=== PATIENT | male | born 1970 | race Hispanic/Latino ===

== ENCOUNTER 2017-03-04 07:06 | Inpatient (IN) | payer OTHER ==
[2017-03-04] MEDS ORDERED: Glucagon Recombinant 1 mg Inj ONE (07:18)
[2017-03-04] MEDS ORDERED: Glucagon Recombinant 1 mg Inj IV STA (07:18)
[2017-03-04 07:38] LABS: BASO # 0.1 K/uL (0.0-0.2); BASO % 0.9 % (0.0-2.0); EOS # 0.5 K/uL (0.0-0.7); EOS % 3.5 % (0.0-4.0); HEMATOCRIT 52.3 % (35.0-51.0); LYMPH # 2.8 K/uL (1.0-4.3); LYMPH % 22.2 % (20.0-40.0); MEAN CELL VOLUME 87.6 fL (80.0-94.0); MEAN CORPUSCULAR HEMOGLOBIN 29.4 pg (27.0-31.0); MEAN CORPUSCULAR HGB CONC 33.5 g/dL (33.0-37.0); MEAN PLATELET VOLUME 8.7 fL (7.2-11.7); MONO # 0.7 K/uL (0.0-0.8); MONO % 5.6 % (0.0-10.0); NRBC % 0.1 % (0.0-2.0); RED CELL DISTRIBUTION WIDTH 13.4 % (11.5-14.5); WHITE BLOOD COUNT 12.8 K/uL (4.8-10.8)
[2017-03-04 07:50] LABS: ALB/GLOB RATIO 1.2 (1.0-2.1); BILIRUBIN,TOTAL 0.7 mg/dL (0.2-1.3); CALCIUM 8.5 mg/dl (8.6-10.4); POTASSIUM 3.8 mmol/L (3.6-5.2); TOTAL PROTEIN 6.6 g/dL (6.3-8.3)
--- NOTE | 2017-03-04 08:18 | RAD ---
HISTORY: r/o infiltrate COMPARISON: No prior. FINDINGS: LUNGS: The lungs are clear. PLEURA: No significant pleural effusion identified, no pneumothorax apparent. CARDIOVASCULAR: Normal. OSSEOUS STRUCTURES: No significant abnormalities. VISUALIZED UPPER ABDOMEN: Normal. OTHER FINDINGS: None. IMPRESSION: No active pulmonary disease.
--- NOTE | 2017-03-04 09:13 | RAD ---
PROCEDURE: Radiographs of the neck (soft tissue). . HISTORY: Questionable foreign body COMPARISON: No prior studies available for comparison TECHNIQUE: AP and lateral radiographs of the neck, optimized for soft tissue visualization. FINDINGS: SOFT TISSUES: There does appear to be the appearance of the free margin of the epiglottis and aryepiglottic folds and probably the paralaryngeal soft tissues with narrowing of the airway. . The possibility of an epiglottitis or other inflammatory process -infection/cellulitis must be at considered. Clinical correlation recommended inflammatory process. Followup CT scan recommended No radiopaque foreign bodies are identified. . No definitive radiopaque foreign bodies are identified CERVICAL SPINE: Grossly unremarkable. OTHER FINDINGS: None. IMPRESSION: Prominence of the free margin of the epiglottis and aryepiglottic folds and probably the paralaryngeal soft tissues with narrowing of the airway ; rule out inflammatory process such as epiglottitis -infection/cellulitis must be considered. Followup CT scan recommended. No definitive radiopaque foreign bodies are identified. Note these findings were discussed with Dr. Falcon at approximately 8:35 a.m. with written down and read back verification.
--- NOTE | 2017-03-04 09:26 | CT ---
PROCEDURE: CT scan neck dated 03/04/2017 HISTORY: Foreign body sensation within the throat. COMPARISON: Correlation made with concurrent on plain film radiographs of the neck. . TECHNIQUE: Contiguous helical/ transaxial sections of the neck without intravenous contrast. Coronal and sagittal reformats generated. . The examination is limited due to the lack of circulating intravenous contrast material. Radiation dose: DLP 1598.38 mGy-cm This CT exam was performed using one or more of the following dose reduction techniques: Automated exposure control, adjustment of the mA and/or kV according to patient size, and/or use of iterative reconstruction technique. . FINDINGS: The current study reveals enlargement of the free margin of the epiglottis and aryepiglottic folds likely due nonspecific edema/swelling. . Swelling extends inferiorly of predominately most pronounced posteriorly and laterally with some relative sparing of the anterior paralaryngeal soft tissues with secondary of obliteration/compression of the pyriform sinuses ; on concurrent secretion on may contribute as well on. Soft tissue swelling extends to the level of the false and to a lesser degree true vocal cords. . Rule out in nonspecific inflammation or infection -cellulitis. . These changes result in marked narrowing of the airway at this level. There are no discrete cervical masses or drainable fluid collections seen. . . There is mild irregularity of the vallecula which could be due to some encroachment of lingual tonsil on and probably some secretion. . The airway below the vocal cords are widely patent. . On no obvious foreign bodies are seen within the within the airway or esophagus. Multiple bilateral cervical lymph nodes are present within the jugulodigastric, submandibular/submental and posterior cervical spaces. The largest right-sided jugulodigastric lymph node measures approximately 2.1 cm though there does appear to be a fatty center. Largest left-sided jugulodigastric lymph node measures approximately 1.3 cm. Evaluation of the cervical vasculature is limited due to the lack of circulating intravenous contrast material however calcified atherosclerotic plaque seen both carotid bifurcations. The parotid and submandibular glands unremarkable. Thyroid gland is poorly seen though does exhibit heterogeneous enhancement which is in part due to crossing streak and beam hardening artifact arising from dense clavicles and shoulder girdles. . Minor multilevel degenerative spondylosis of the cervical spine most notably affecting the C6-C7 and C5-C6 levels. Lung apices are clear. IMPRESSION: There is mild enlargement/swelling of the free margin of the epiglottis, aryepiglottic folds and and moderate enlargement/swelling of the inferior paralaryngeal soft tissues. Findings could represent an epiglottitis with pamella/ infection -cellulitis. Note that these findings were discussed with Dr. Mejia at approximately 8:35 a.m. with written down and read back verification. Precautionary tracheostomy kit to bedside and endoscopy suggested. See above discussion for additional details and findings.
[2017-03-04] MEDS ORDERED: Piperacillin/Tazobact 3.375 GM in Sodium Chloride 100 ML IVPB SCH (09:30)
[2017-03-04] MEDS ORDERED: Clindamycin 600mg/50ml NS 600 MG/50 ML BAG IVPB ONE (09:42)
--- NOTE | 2017-03-04 10:02 | CON ---
DATE: 03/04/2017 REASON FOR CONSULTATION: Epiglottitis, possible. REQUESTING PHYSICIAN: The emergency room. HISTORY OF PRESENT ILLNESS: This is a 46-year-old with 1-day history of dysphagia, constant, moderate. The patient presents to the ER with these symptoms. He has no shortness of breath and no hoarseness. When the patient laid supine, cane breathe; however, for only for a minute and then feels like his throat is closing up. PAST MEDICAL HISTORY: As noted in the chart by me. MEDICATIONS: As noted in the chart by me. PHYSICAL EXAMINATION: HEAD: Atraumatic, normocephalic. FACE: Good facial movements bilaterally. CONSTITUTIONAL: Well fed, well nourished. COMMUNICATION: Communicates well appropriately. EXTERNAL NOSE AND EARS: No masses. No lesions. No erythema. No edema. INTERNAL NOSE: There is possible erythema, edema of the mucosa with yellow discharge noted. ORAL CAVITY AND OROPHARYNX: Erythema of the pharyngeal sanchez. LIPS AND GUMS: No masses. No lesions. No erythema. No edema. NECK: Supple. THYROID: No thyromegaly. No goiter. LYMPH NODES: No lymphadenopathy of the neck. A flexible laryngoscopy was attempted; however, the patient was not tolerating it well. I decided that it will be wiser to stop as the patient has epiglottitis, this could make the situation worse, therefore the attempt of flexible laryngoscopy was aborted. ASSESSMENT: 1. Dysphagia. 2. Deviated septum. 3. Possible epiglottitis. The CAT scan revealed enlarged epiglottis; however, the patient is not symptomatically short of breath. PLAN: My recommendations for the patient to be admitted to the hospital, placed on IV steroids and IV antibiotics and observe for now. If the patient shows any signs of shortness of breath or difficulty, he should be admitted to the ICU. Sebastian Garcia MD
--- NOTE | 2017-03-04 11:24 | C.PDOC ---
History Of Present Illness 46 y/o male presents to ED complaining of fullness in the back of his throat that woke him up at 3:00AM this morning. Pt describes it as a "ball of phlegm" in the back of the throat, with associated cough. Notes eating last night at 6: 00PM without difficulty. Denies sick contact, fever, chest pain, or shortness of breath. Chief Complaint (Nursing): Respiratory Distress History Per: Patient History/Exam Limitations: no limitations Onset/Duration Of Symptoms: Hrs Current Symptoms Are (Timing): Still Present Past Medical History Reviewed: Historical Data, Nursing Documentation, Vital Signs Vital Signs: Last Vital Signs Temp 97.8 F 03/04/17 16:00 Pulse 91 H 03/04/17 16:07 Resp 14 03/04/17 16:07 BP 157/107 H 03/04/17 16:07 Pulse Ox 94 L 03/04/17 16:07 - Medical History PMH: HTN Family History: States: Unknown Family Hx - Social History Hx Alcohol Use: No Hx Substance Use: No - Immunization History Hx Influenza Vaccination: No Review Of Systems Except As Marked, All Systems Reviewed And Found Negative. Constitutional: Negative for: Fever, Chills ENT: Positive for: Other (fullness in back of throat) Cardiovascular: Negative for: Chest Pain, Palpitations Respiratory: Positive for: Cough. Negative for: Shortness of Breath Physical Exam - Physical Exam Appears: Non-toxic, Other (mild to moderate distress) Skin: Normal Color, Warm, Dry Head: Atraumatic, Normacephalic Eye(s): bilateral: Normal Inspection Nose: Normal Oral Mucosa: Moist Throat: Erythema, No Other (no tongue blade used) Neck: Normal ROM, Supple Chest: Symmetrical Cardiovascular: Rhythm Regular, No Murmur Respiratory: No Rales, No Rhonchi, Stridor (minimal), No Wheezing, Other ( coughing phlegm) Gastrointestinal/Abdominal: Soft, No Tenderness Extremity: Normal ROM, No Pedal Edema Neurological/Psych: Oriented x3, Normal Speech ED Course And Treatment - Laboratory Results Result Diagrams: 03/04/17 07:34 03/04/17 07:34 O2 Sat by Pulse Oximetry: 95 Pulse Ox Interpretation: Normal Progress Note: Blood work, UA, influenza AB, CXR, neck soft tissue x-ray/CT ordered and reviewed. Initially 1mg of Glucagon IV was given for possible foreign body without improvement. 10mg of Decadron IVP was given prior to CT scan results. ENT, and ICU were called immediately after receiving call from radiologist regarding CT scan results. ENT, Dr. Garcia, came to ED, and performed direct visualization. Spoke to infectious disease rigging and controls aircraft mechanic, Dr. Nova , who recommended Zosyn and Clindamycin. Hospitalist was made aware of case. Pt was admitted to ICU. Pt remains stable in the ED, no respiratory distress. Critical Care Time - Critical Care Note Total Time (in mins): 90 Documented critical care: time excludes all time spent performing seperately billable procedures. Disposition - Disposition Disposition: HOSPITALIZED Disposition Time: 19:30 Condition: SERIOUS - Clinical Impression Clinical Impression: Acute epiglottitis - Scribe Statement The provider has reviewed the documentation as recorded by the Darielibyousif Lazo All medical record entries made by the Darielibyousif were at my direction and personally dictated by me. I have reviewed the chart and agree that the record accurately reflects my personal performance of the history, physical exam, medical decision making, and the department course for this patient. I have also personally directed, reviewed, and agree with the discharge instructions and disposition.
[2017-03-04] MEDS ORDERED: Labetalol 25mg/5ml Syringe IV PRN (12:20)
--- NOTE | 2017-03-04 12:29 | CP.PCM.CON ---
History of Present Illness - History of Present Illness History of Present Illness: Patient is a 46 year old male with history of HTN who reported to the ER this morning after he that he woke up at 3AM with sensation of fullness in his throat. States he had difficulty swallowing and lying flat without feeling fullness in his throat. Admits to experiencing a sore throat yesterday. States he has not been drooling. Denies prior history of similar episodes. Denies chest pain, shortness of breath, abdominal pain. CT soft tissue of neck revealed enlargement/swelling of epiglottis that could represent epiglottitis. He has never been intubated before, he would like to try antibiotics initially. In the ED, he received Decadron 10mg IM, and was initiated on Clindamycin 600mg IV, Zosyn 3.375g IV. Review of Systems - Review of Systems All systems: reviewed and no additional remarkable complaints except - Constitutional Constitutional: As Per HPI - EENT Eyes: As Per HPI Ears: As Per HPI Nose/Mouth/Throat: As Per HPI - Cardiovascular Cardiovascular: As Per HPI - Respiratory Respiratory: As Per HPI - Gastrointestinal Gastrointestinal: As Per HPI - Genitourinary Genitourinary: As Per HPI - Reproductive: Male Reproductive:Male: As Per HPI - Musculoskeletal Musculoskeletal: As Per HPI - Integumentary Integumentary: As Per HPI Past Patient History - Infectious Disease Hx of Infectious Diseases: None - Past Medical History & Family History Past Medical History?: Yes - Past Social History Smoking Status: Never Smoked - CARDIAC Hx Hypertension: Yes - PULMONARY Hx Respiratory Disorders: No - NEUROLOGICAL Hx Neurological Disorder: No - HEENT Hx HEENT Problems: No - RENAL Hx Chronic Kidney Disease: No - ENDOCRINE/METABOLIC Hx Endocrine Disorders: No - HEMATOLOGICAL/ONCOLOGICAL Hx Blood Disorders: No - INTEGUMENTARY Hx Dermatological Problems: No - MUSCULOSKELETAL/RHEUMATOLOGICAL Hx Fractures: Yes (hip fx 11 years ago) - GASTROINTESTINAL Hx Gastrointestinal Disorders: No - GENITOURINARY/GYNECOLOGICAL Hx Genitourinary Disorders: No - PSYCHIATRIC Hx Substance Use: No - SURGICAL HISTORY Hx Surgeries: Yes Hx Open Reduction Internal Fixation: Yes (right hip fx) - ANESTHESIA Hx Anesthesia: Yes Hx Anesthesia Reactions: No Hx Malignant Hyperthermia: No Has any member of the family had a problem w/ anesthesia?: No Meds Allergies/Adverse Reactions: Allergies Allergy/AdvReac Type Severity Reaction Status Date / Time No Known Allergies Allergy Verified 03/04/17 07:11 - Medications Medications: Current Medications Dexamethasone (Decadron Inj) 4 mg IVP Q8H [facility] Enoxaparin Sodium (Lovenox) 40 mg SC DAILY [facility] Famotidine (Pepcid) 20 mg IVP Q12 [facility]ICK[facility] Sodium Chloride (Sodium Chloride 0.9%) 1,000 mls @ 42 mls/hr IV .[id number] [facility] Ceftriaxone Sodium 1 gm/ (Sodium Chloride) 100 mls @ 100 mls/hr IVPB Q12H [facility] Labetalol HCl (Trandate) 5 mg IV Q6 PRN PRN Reason: Systolic Blood Pressure Saccharomyces Boulardii (Florastor) 250 mg PO BID [facility] Physical Exam - Head Exam Head Exam: ATRAUMATIC, NORMAL INSPECTION - Eye Exam Eye Exam: EOMI, Normal appearance Pupil Exam: NORMAL ACCOMODATION - ENT Exam ENT Exam: Mucous Membranes Moist - Neck Exam Neck exam: Positive for: Normal Inspection. Negative for: Lymphadenopathy - Respiratory Exam Respiratory Exam: Clear to Auscultation Bilateral, NORMAL BREATHING PATTERN. absent: Accessory Muscle Use, Chest Wall Tenderness, Stridor - Cardiovascular Exam Cardiovascular Exam: REGULAR RHYTHM, RRR, +S1, +S2 - GI/Abdominal Exam GI & Abdominal Exam: Normal Bowel Sounds, Soft Results - Vital Signs Recent Vital Signs: Last Vital Signs Temp 97.7 F 03/04/17 10:20 Pulse 102 H 03/04/17 10:20 Resp 11 L 03/04/17 10:20 BP 162/120 H 03/04/17 10:20 Pulse Ox 95 03/04/17 12:24 - Labs Result Diagrams: 03/04/17 07:34 03/04/17 07:34 Labs: Laboratory Results - last 24 hr 03/04/17 03/04/17 03/04/17 07:34 07:34 07:34 WBC 12.8 H RBC 5.97 H Hgb 17.5 Hct 52.3 H MCV 87.6 MCH 29.4 MCHC 33.5 RDW 13.4 Plt Count 349 MPV 8.7 Neut % (Auto) 67.8 Lymph % (Auto) 22.2 [place] % (Auto) 5.6 Eos % (Auto) 3.5 Baso % (Auto) 0.9 Neut # 8.7 H Lymph # 2.8 [place] # 0.7 Eos # 0.5 Baso # 0.1 PT 10.7 INR 1.0 APTT 32 Sodium 139 Potassium 3.8 Chloride 107 Carbon Dioxide 23 Anion Gap 13 BUN 36 H Creatinine 4.3 H Est GFR ( Amer) 18 Est GFR (Non-Af Amer) 15 Random Glucose 109 Calcium 8.5 L Total Bilirubin 0.7 AST 21 ALT 27 Alkaline Phosphatase 85 Total Protein 6.6 Albumin 3.6 Globulin 3.0 Albumin/Globulin Ratio 1.2 Influenza Typ A,B (EIA) Blood Type Antibody Screen 03/04/17 03/04/17 07:38 10:45 WBC RBC Hgb Hct MCV MCH MCHC RDW Plt Count MPV Neut % (Auto) Lymph % (Auto) [place] % (Auto) Eos % (Auto) Baso % (Auto) Neut # Lymph # [place] # Eos # Baso # PT INR APTT Sodium Potassium Chloride Carbon Dioxide Anion Gap BUN Creatinine Est GFR ( Amer) Est GFR (Non-Af Amer) Random Glucose Calcium Total Bilirubin AST ALT Alkaline Phosphatase Total Protein Albumin Globulin Albumin/Globulin Ratio Influenza Typ A,B (EIA) Negative for flu a/b Blood Type AB POSITIVE Antibody Screen Negative Assessment & Plan - Assessment and Plan (Free Text) Assessment: 46 year old male with history of HTN who presented for dysphagia, with possible epiglottitis. ENT: Continue IV antibiotics with Ceftriaxone 1g IV Decadron 4mg IV Q8 NS IV fluids 1L ENT Dr. Garcia consulted, help appreciated Monitor regularly to check for stridor, hoarse voice which would need further management Keep NPO Sputum cultures for strep and influenza pending. Procalcitonin levels, lactate levels pending. Cardiovascular: Blood pressure elevated at 162/120 Labetalol 5mg IV Prophylaxis: GI: Pepcid 20mg I DVTs: SCDs, lovenox 40mg SC
[2017-03-04] MEDS ORDERED: Sodium Chloride 0.9% 1,000 ML IV SCH ×2 (12:30→17:24)
[2017-03-04] MEDS: Dexamethasone 4 mg/1 ml IVP SCH ×2 (13:22→21:52)
--- NOTE | 2017-03-04 13:39 | CP.PCM.HP ---
History of Present Illness - History of Present Illness History of Present Illness: Hospitalist Admission Note Patient was seen and examined in the ICU Bed 17 at 1:00 PM 03/04/17. PMD Dr. Mukherjee in [place] CODE STATUS: FULL CODE. NO advance directive. Designates Auto Motor Mechanic Shannan Perez as his health care proxy. Would like his Sister Jeanette [phone] notified for any emergencies. 46 year old male who presented via EMS with a chief complaint of choking sensation. Patient states that he went to sleep at midnight last night. He then woke up abruptly at 3 AM coughing and wheezing and a choking sensation in the back of his throat. He tried to drink some water but this made these things worse. He became concerned as this has never happened before and therefore called 911 and was brought to the ER here at [facility]. He has not recently traveled anywhere. 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 ROS: NO chest pain, NO palpitations, (+) Cough: this has significantly improved since his treatment (Decadron, IV Clindamycin and Zosyn) in the ER, NO wheezing , (+) Soreness in throat is present but no longer feels as if he is choking, (+ ) Hoarseness of Voice (when he came into the ER he states that he could not even speak), NO abdominal pain, NO n/v/d/c, NO black/bloody stools, NO lightheadedness/dizziness, NO burning/pain with urination, NO paresthesias, NO current rashes but (+)Hx of Hives for the past 2 years for which he is being treated with Hydroxyzine 10 mg PO 1x/day for which he ran out 1 week ago (and has been using OTC Zyrtec, also note that he has never been tested for allergies ) PMHx: HTN, Hives (bilateral forearms, chest and the bilateral temporal areas) PSHx: Right Hip Fracture (15 years ago) with (+) Metal Hardware Present ALL: NKDA or Food Allergies Medication: Exforge "10" mg, Hyroxyzine 10 mg PO 1x/day Social Hx: Lives Alone, Owns a Pizzeria, (+) Tobacco: 1 pack/2 weeks for 2 years having quit 5 years ago, NO alcohol, NO illicit drugs Family Hx: Mom ( at 85 of CHF), Dad ( at 60 of [place]), Brother (Healthy), Sisters x 2 (Healthy) Present on Admission - Present on Admission Any Indicators Present on Admission: Yes History of DVT/PE: No History of Uncontrolled Diabetes: No Urinary Catheter: No Decubitus Ulcer Present: No Review of Systems - Review of Systems Review of Systems: Please see above Past Patient History - Infectious Disease Hx of Infectious Diseases: None - Past Medical History & Family History Past Medical History?: Yes Pertinent Family History: Please see above - Past Social History Smoking Status: Never Smoked - CARDIAC Hx Hypertension: Yes - PULMONARY Hx Respiratory Disorders: No - NEUROLOGICAL Hx Neurological Disorder: No - HEENT Hx HEENT Problems: No - RENAL Hx Chronic Kidney Disease: No - ENDOCRINE/METABOLIC Hx Endocrine Disorders: No - HEMATOLOGICAL/ONCOLOGICAL Hx Blood Disorders: No - INTEGUMENTARY Hx Dermatological Problems: No - MUSCULOSKELETAL/RHEUMATOLOGICAL Hx Fractures: Yes (hip fx 11 years ago) - GASTROINTESTINAL Hx Gastrointestinal Disorders: No - GENITOURINARY/GYNECOLOGICAL Hx Genitourinary Disorders: No - PSYCHIATRIC Hx Substance Use: No - SURGICAL HISTORY Hx Surgeries: Yes Hx Open Reduction Internal Fixation: Yes (right hip fx) - ANESTHESIA Hx Anesthesia: Yes Hx Anesthesia Reactions: No Hx Malignant Hyperthermia: No Has any member of the family had a problem w/ anesthesia?: No Meds Allergies/Adverse Reactions: Allergies Allergy/AdvReac Type Severity Reaction Status Date / Time No Known Allergies Allergy Verified 03/04/17 07:11 Physical Exam - Constitutional Appears: Well, Non-toxic, No Acute Distress - Head Exam Head Exam: ATRAUMATIC, NORMAL INSPECTION - Eye Exam Eye Exam: EOMI, Normal appearance, PERRL Pupil Exam: NORMAL ACCOMODATION, PERRL - ENT Exam ENT Exam: Mucous Membranes Dry, Normal Exam, Normal External Ear Exam, Normal Oropharynx - Neck Exam Neck exam: Positive for: Normal Inspection Additional comments: Thick neck but lymphadenopathy palpated - Respiratory Exam Respiratory Exam: Clear to Auscultation Bilateral Additional comments: CTA B/L, NO R/R/W - Cardiovascular Exam Cardiovascular Exam: REGULAR RHYTHM, +S1, +S2 Additional comments: NS1 and NS2, NO M/R/G - GI/Abdominal Exam GI & Abdominal Exam: Normal Bowel Sounds, Soft Additional comments: BSx4, Soft, NT, Central Obesity, Liver and Spleen could not be adequately palpated secondary to body habitus, NO guarding/rebound tenderness - Extremities Exam Extremities exam: Positive for: normal capillary refill, normal inspection Additional comments: Pulses are strong and qual, Capillary Refill is 2 seconds, NO edema - Neurological Exam Neurological exam: Alert, CN II-XII Intact, Oriented x3 - Psychiatric Exam Psychiatric exam: Normal Affect, Normal Mood - Skin Skin Exam: Dry, Intact, Normal Color Results - Vital Signs Recent Vital Signs: Last Vital Signs Temp 97.7 F 03/04/17 10:20 Pulse 102 H 03/04/17 10:20 Resp 11 L 03/04/17 10:20 BP 162/120 H 03/04/17 10:20 Pulse Ox 95 03/04/17 13:24 - Labs Result Diagrams: 03/04/17 07:34 03/04/17 07:34 Labs: Laboratory Results - last 24 hr 03/04/17 03/04/17 03/04/17 07:34 07:34 07:34 WBC 12.8 H RBC 5.97 H Hgb 17.5 Hct 52.3 H MCV 87.6 MCH 29.4 MCHC 33.5 RDW 13.4 Plt Count 349 MPV 8.7 Neut % (Auto) 67.8 Lymph % (Auto) 22.2 [place] % (Auto) 5.6 Eos % (Auto) 3.5 Baso % (Auto) 0.9 Neut # 8.7 H Lymph # 2.8 [place] # 0.7 Eos # 0.5 Baso # 0.1 PT 10.7 INR 1.0 APTT 32 Sodium 139 Potassium 3.8 Chloride 107 Carbon Dioxide 23 Anion Gap 13 BUN 36 H Creatinine 4.3 H Est GFR ( Amer) 18 Est GFR (Non-Af Amer) 15 Random Glucose 109 Calcium 8.5 L Total Bilirubin 0.7 AST 21 ALT 27 Alkaline Phosphatase 85 Total Protein 6.6 Albumin 3.6 Globulin 3.0 Albumin/Globulin Ratio 1.2 Influenza Typ A,B (EIA) Blood Type Antibody Screen 03/04/17 03/04/17 07:38 10:45 WBC RBC Hgb Hct MCV MCH MCHC RDW Plt Count MPV Neut % (Auto) Lymph % (Auto) [place] % (Auto) Eos % (Auto) Baso % (Auto) Neut # Lymph # [place] # Eos # Baso # PT INR APTT Sodium Potassium Chloride Carbon Dioxide Anion Gap BUN Creatinine Est GFR ( Amer) Est GFR (Non-Af Amer) Random Glucose Calcium Total Bilirubin AST ALT Alkaline Phosphatase Total Protein Albumin Globulin Albumin/Globulin Ratio Influenza Typ A,B (EIA) Negative for flu a/b Blood Type AB POSITIVE Antibody Screen Negative Assessment & Plan (1) Acute epiglottitis Assessment and Plan: CT Soft Tiss Neck w/o contrast: there is mild enlargement/swelling of the free margin of the epiglottis, aryepiglottic folds and moderate enlargement/swelling of the inferior paralaryngeal soft tissues, findings could represent an epiglottitis. Clindaymcin and Zosyn and Decadron given in the ER Bedside Laryngoscope attempted by ENT Dr. Thrasher due to resistance this was discontinued. Patient is clinically doing well Decadron 4 mg IV Q8H Recephin 1 gm IV Q24H Vancomycin 1 gm IV Q24H (renal dosing) F/U [place] 1:30 AM 03/06/17 Influenza is negative F/U ASO Titers F/U Rapid Strep F/U HSV 1 F/U [place] Virus/Monospot F/U Parainfluenza 1,2,3 DFA (Manual Requistion completed and placed in chart) F/U further recommendations from ID Dr. Raeann Nova Status: Acute (2) HTN (hypertension) Assessment and Plan: He takes Exforge at home. HOLD for NOW considering the Renal Failure Status: Chronic (3) Acute renal failure Assessment and Plan: Secondary to home medications of Exforge? Is this Chronic? Patient revealed that he last saw his PMD roughly 1 month ago and was told that his kidney function was abnormal and was instructed to follow up with a Neprhologist and he has appointment scheduled for next weekl Is this Chronic? (he gives no history of this when questioning his medical history) F/U Bilateral Renal U/S IVF If there is NO improvement with the IVF then will get Nephrology on board Status: Acute (4) Prophylactic measure Assessment and Plan: Pepcid 20 mg IV 1x/day Heparin 5,000 Units SC Q8H and Bilateral SCDs Heart Healthy Diet Florastor 250 mg PO 2x/day Status: Acute
[2017-03-04] MEDS ORDERED: Vancomycin 1 gm/NS 200 ml 1 GM/200 ML BAG IVPB SCH ×2 (14:00→16:00)
--- NOTE | 2017-03-04 17:05 | CP.PCM.CON ---
History of Present Illness - History of Present Illness History of Present Illness: 46 year old male who presented via EMS with a chief complaint of choking sensation. He woke up at 3 AM coughing and wheezing and a choking sensation in the back of his throat. He states that he had no recent travel or exposure to chemicals or toxins Says a co-worker recently had a sore throat PMHx: HTN, Hives PSHx: Right Hip Fracture (15 years ago) with (+) Metal Hardware Present ALL: NKDA Medication: Exforge "10" mg, Hyroxyzine 10 mg PO 1x/day Social Hx: Lives Alone, Owns a [employer], (+) Tobacco: quit 5 years ago, NO alcohol, NO illicit drugs Family Hx: Mom ( at 85 of CHF), Dad ( at 60 of [place]), Brother (Healthy), Sisters x 2 (Healthy) Review of Systems - Review of Systems All systems: reviewed and no additional remarkable complaints except - Constitutional Constitutional: As Per HPI - EENT Eyes: absent: As Per HPI, Blind Spots, Blurred Vision, Change in Vision, Decreased Night Vision, Diplopia, Discharge, Dry Eye, Exophthalmos, Floaters, Irritation, Itchy Eyes, Loss of Peripheral Vision, Pain, Photophobia, Requires Corrective Lenses, Sees Flashes, Spots in Vision, Tunnel Vision, Other Visual Disturbances, Loss of Vision, Other Ears: absent: As Per HPI, Decreased Hearing, Ear Discharge, Ear Pain, Tinnitus, Abnormal Hearing, Disequilibrium, Dizziness, Other Nose/Mouth/Throat: As Per HPI - Cardiovascular Cardiovascular: absent: As Per HPI, Acrocyanosis, Chest Pain, Chest Pain at Rest , Chest Pain with Activity, Claudication, Diaphoresis, Dyspnea, Dyspnea on Exertion, Edema, Irregular Heart Rhythm, Pain Radiating to Arm/Neck/Jaw, Leg Edema, Leg Ulcers, Lightheadedness, Orthopnea, Palpitations, Paroxysmal Nocturnal Dyspnea, Pedal Edema, Radiating Pain, Rapid Heart Rate, Slow Heart Rate, Syncope, Other - Respiratory Respiratory: absent: As Per HPI, Cough, Dyspnea, Hemoptysis, Dyspnea on Exertion , Wheezing, Snoring, Stridor, Pain on Inspiration, Chest Congestion, Excessive Mucous Production, Change in Mucous Color, Pain with Coughing, Other - Gastrointestinal Gastrointestinal: absent: As Per HPI, Abdominal Pain, Belching, Bloating, Change in Bowel Habits, Change in Stool Character, Coffee Ground Emesis, Constipation, Cramping, Diarrhea, Dyspepsia, Dysphagia, Early Satiety, Excessive Flatus, Fecal Incontinence, Heartburn, Hematemesis, Hematochezia, Loose Stools, Melena, Nausea, Odynophagia, Temesmus, Vomiting, Other - Genitourinary Genitourinary: absent: As Per HPI, Change in Urinary Stream, Difficulty Urinating, Dysuria, Flank Pain, Hematuria, Pyuria, Nocturia, Urinary Incontinence, Urinary Frequency, Urinary Hesitance, Urinary Urgency, Voiding Freq/Small Amts, Freq UTI, Hx Renal/Bladder Calculi, Hx /Renal Surgery, Bladder Distension, Other - Musculoskeletal Musculoskeletal: absent: As Per HPI, Abnormal Gait, Arthralgias, Atrophy, Back Pain, Deformity, Joint Swelling, Limited Range of Motion, Loss of Height, Muscle Cramps, Muscle Weakness, Myalgias, Neck Pain, Numbness, Radiating Pain into Limb, Stiffness, Tingling, Other - Integumentary Integumentary: absent: As Per HPI, Acne, Alopecia, Bleeding Lesions, Change in Hair, Change in Nails, Change in Pigmentation, Changing Lesions, Dry Skin, Erythema, Furuncle, Hirsutism, Lesions, New Lesions, Non-Healing Lesions, Photosensitivity, Pruritus, Rash, Skin Pain, Skin Ulcer, Sores, Striae, Swelling , Unusual Bruising, Wounds, Jaundice, Other - Neurological Neurological: absent: As Per HPI, Abnormal Gait, Abnormal Hearing, Abnormal Movements, Abnormal Speech, Behavioral Changes, Burning Sensations, Confusion, Convulsions, Disequilibrium, Dizziness, Numbness, Focal Weakness, Frequent Falls , Headaches, Lack of Coordination, Loss of Vision, Memory Loss, Paresthesias, Radicular Pain, Restless Legs, Sensory Deficit, Syncope, Tingling, Tremor, Vertigo, Weakness, Other Visual Disturbances, Other - Psychiatric Psychiatric: absent: As Per HPI, Abnormal Sleep Pattern, Anhedonia, Anxiety, Auditory Hallucinations, Behavioral Changes, Change in Appetite, Change in Libido, Confusion, Depression, Difficulty Concentrating, Hallucinations, Homicidal Ideation, Hopelessness, Irritability, Memory Loss, Mood Swings, Panic Attacks, Paranoia, Suicidal Ideation, Visual Hallucinations, Tactile Hallucinations, Other - Endocrine Endocrine: absent: As Per HPI, Change in Body Appearance, Change in Libido, Cold Intolorance, Deepening of Voice, Excessive Sweating, Fatigue, Flushing, Heat Intolorance, Increase in Ring/Shoe/Hat Size, Palpitations, Polydipsia, Polyphagia, Polyuria, Other - Hematologic/Lymphatic Hematologic: absent: As Per HPI, Easy Bleeding, Easy Bruising, Lymphadenopathy, Other Past Patient History - Infectious Disease Hx of Infectious Diseases: None - Past Medical History & Family History Past Medical History?: Yes - Past Social History Smoking Status: Never Smoked - CARDIAC Hx Hypertension: Yes - PULMONARY Hx Respiratory Disorders: No - NEUROLOGICAL Hx Neurological Disorder: No - HEENT Hx HEENT Problems: No - RENAL Hx Chronic Kidney Disease: No - ENDOCRINE/METABOLIC Hx Endocrine Disorders: No - HEMATOLOGICAL/ONCOLOGICAL Hx Blood Disorders: No - INTEGUMENTARY Hx Dermatological Problems: No - MUSCULOSKELETAL/RHEUMATOLOGICAL Hx Fractures: Yes (hip fx 11 years ago) - GASTROINTESTINAL Hx Gastrointestinal Disorders: No - GENITOURINARY/GYNECOLOGICAL Hx Genitourinary Disorders: No - PSYCHIATRIC Hx Substance Use: No - SURGICAL HISTORY Hx Surgeries: Yes Hx Open Reduction Internal Fixation: Yes (right hip fx) - ANESTHESIA Hx Anesthesia: Yes Hx Anesthesia Reactions: No Hx Malignant Hyperthermia: No Has any member of the family had a problem w/ anesthesia?: No Meds Allergies/Adverse Reactions: Allergies Allergy/AdvReac Type Severity Reaction Status Date / Time No Known Allergies Allergy Verified 03/04/17 07:11 - Medications Medications: Current Medications Dexamethasone (Decadron Inj) 4 mg IVP Q8H [facility] Last Admin: 03/04/17 13:22 Dose: 4 mg Famotidine (Pepcid) 20 mg IVP DAILY [facility] Heparin Sodium (Porcine) (Heparin) 5,000 units SC Q8 [facility] Last Admin: 03/04/17 14:28 Dose: 5,000 units Sodium Chloride (Sodium Chloride 0.9%) 1,000 mls @ 42 mls/hr IV .[id number] [facility] Last Admin: 03/04/17 13:06 Dose: 42 mls/hr Ceftriaxone Sodium 1 gm/ (Sodium Chloride) 100 mls @ 100 mls/hr IVPB Q12H [facility] Last Admin: 03/04/17 14:20 Dose: 100 mls/hr Vancomycin/Sodium Chloride (Vancomycin 1 Gm/Ns 200 Ml) 1 gm in 200 mls @ 133.333 mls/hr IVPB Q24H [facility] Stop: 03/09/17 16:01 Last Admin: 03/04/17 16:32 Dose: 133.333 mls/hr Labetalol HCl (Trandate) 5 mg IV Q6 PRN PRN Reason: Systolic Blood Pressure Last Admin: 03/04/17 13:06 Dose: 5 mg Metoprolol Tartrate (Lopressor) 25 mg PO BID [facility] Saccharomyces Boulardii (Florastor) 250 mg PO BID [facility] Physical Exam - Constitutional Appears: Non-toxic, Chronically Ill - Head Exam Head Exam: NORMOCEPHALIC - Eye Exam Eye Exam: PERRL. absent: Scleral icterus - ENT Exam ENT Exam: Mucous Membranes Dry, Normal External Ear Exam, TM's Normal Bilaterally Additional comments: erythema+ unable to visualize epiglottis - Neck Exam Neck exam: Negative for: Lymphadenopathy, Thyromegaly - Respiratory Exam Respiratory Exam: Decreased Breath Sounds, Clear to Auscultation Bilateral - Cardiovascular Exam Cardiovascular Exam: REGULAR RHYTHM, +S1, +S2 - GI/Abdominal Exam GI & Abdominal Exam: Diminished Bowel Sounds, Soft. absent: Tenderness - Rectal Exam Rectal Exam: Deferred - Exam Exam: NORMAL INSPECTION - Extremities Exam Extremities exam: Negative for: pedal edema - Back Exam Back exam: absent: CVA tenderness (L), CVA tenderness (R), paraspinal tenderness - Neurological Exam Neurological exam: Alert, CN II-XII Intact, Oriented x3, Reflexes Normal - Psychiatric Exam Psychiatric exam: Normal Mood - Skin Skin Exam: Dry, Intact Results - Vital Signs Recent Vital Signs: Last Vital Signs Temp 97.8 F 03/04/17 16:00 Pulse 91 H 03/04/17 16:07 Resp 14 03/04/17 16:07 BP 157/107 H 03/04/17 16:07 Pulse Ox 94 L 03/04/17 16:07 - Labs Result Diagrams: 03/04/17 07:34 03/04/17 07:34 Labs: Laboratory Results - last 24 hr 03/04/17 03/04/17 03/04/17 07:34 07:34 07:34 WBC 12.8 H RBC 5.97 H Hgb 17.5 Hct 52.3 H MCV 87.6 MCH 29.4 MCHC 33.5 RDW 13.4 Plt Count 349 MPV 8.7 Neut % (Auto) 67.8 Lymph % (Auto) 22.2 [place] % (Auto) 5.6 Eos % (Auto) 3.5 Baso % (Auto) 0.9 Neut # 8.7 H Lymph # 2.8 [place] # 0.7 Eos # 0.5 Baso # 0.1 PT 10.7 INR 1.0 APTT 32 Sodium 139 Potassium 3.8 Chloride 107 Carbon Dioxide 23 Anion Gap 13 BUN 36 H Creatinine 4.3 H Est GFR ( Amer) 18 Est GFR (Non-Af Amer) 15 Random Glucose 109 Lactic Acid Calcium 8.5 L Total Bilirubin 0.7 AST 21 ALT 27 Alkaline Phosphatase 85 Total Protein 6.6 Albumin 3.6 Globulin 3.0 Albumin/Globulin Ratio 1.2 Procalcitonin Influenza Typ A,B (EIA) Blood Type Antibody Screen 03/04/17 03/04/17 03/04/17 07:38 10:45 15:03 WBC RBC Hgb Hct MCV MCH MCHC RDW Plt Count MPV Neut % (Auto) Lymph % (Auto) [place] % (Auto) Eos % (Auto) Baso % (Auto) Neut # Lymph # [place] # Eos # Baso # PT INR APTT Sodium Potassium Chloride Carbon Dioxide Anion Gap BUN Creatinine Est GFR ( Amer) Est GFR (Non-Af Amer) Random Glucose Lactic Acid Calcium Total Bilirubin AST ALT Alkaline Phosphatase Total Protein Albumin Globulin Albumin/Globulin Ratio Procalcitonin 0.73 H Influenza Typ A,B (EIA) Negative for flu a/b Blood Type AB POSITIVE Antibody Screen Negative 03/04/17 15:03 WBC RBC Hgb Hct MCV MCH MCHC RDW Plt Count MPV Neut % (Auto) Lymph % (Auto) [place] % (Auto) Eos % (Auto) Baso % (Auto) Neut # Lymph # [place] # Eos # Baso # PT INR APTT Sodium Potassium Chloride Carbon Dioxide Anion Gap BUN Creatinine Est GFR ( Amer) Est GFR (Non-Af Amer) Random Glucose Lactic Acid 1.4 Calcium Total Bilirubin AST ALT Alkaline Phosphatase Total Protein Albumin Globulin Albumin/Globulin Ratio Procalcitonin Influenza Typ A,B (EIA) Blood Type Antibody Screen Assessment & Plan (1) Acute epiglottitis Status: Acute (2) Acute renal failure Status: Acute (3) Prophylactic measure Status: Acute (4) HTN (hypertension) Status: Chronic - Assessment and Plan (Free Text) Assessment: severe epiglottitis r/o viral vs bacterial renal failure acute vs chronic r/o ATN vs Acute Glomerulonephritis ( streptococcal ?) agree with empiric IV antibiotics consider zyvox instead of Vanco await cultures
[2017-03-04] MEDS: Saccharomyces Boulardi 250 mg Cap PO SCH (18:13)
[2017-03-05] MEDS: Dexamethasone 4 mg/1 ml IVP SCH (04:39)
[2017-03-05 06:17] LABS: BASO % 0.1 % (0.0-2.0); HEMATOCRIT 47.3 % (35.0-51.0); LYMPH # 1.1 K/uL (1.0-4.3); LYMPH % 6.1 % (20.0-40.0); MEAN CELL VOLUME 89.2 fL (80.0-94.0); MEAN CORPUSCULAR HEMOGLOBIN 30.1 pg (27.0-31.0); MEAN CORPUSCULAR HGB CONC 33.8 g/dL (33.0-37.0); MEAN PLATELET VOLUME 8.8 fL (7.2-11.7); MONO # 0.4 K/uL (0.0-0.8); MONO % 2.4 % (0.0-10.0); PLATELET COUNT 337 K/uL (130-400); RED CELL DISTRIBUTION WIDTH 13.4 % (11.5-14.5); WHITE BLOOD COUNT 17.9 K/uL (4.8-10.8)
[2017-03-05 06:43] LABS: ALB/GLOB RATIO 0.8 (1.0-2.1); BILIRUBIN,TOTAL 0.4 mg/dL (0.2-1.3); CALCIUM 8.3 mg/dl (8.6-10.4); MAGNESIUM 2.2 mg/dL (1.6-2.3); PHOSPHOROUS 3.8 mg/dL (2.5-4.5); TOTAL PROTEIN 7.3 g/dL (6.3-8.3)
--- NOTE | 2017-03-05 07:21 | CP.CCUPN ---
CCU Subjective - Physician Review Subjective (Free Text): 03/05/17 07:17 NO acute events overnight. PAtient tolerating oral diet and states "much bettter ". Hoarseness of voice resolved today (back to [facility]) CCU Objective - Vital Signs / Intake & Output Vital Signs (Last 4 hours): Vital Signs Temp Pulse Resp BP Pulse Ox 03/05/17 06:07 72 15 139/97 H 96 03/05/17 06:00 73 14 95 03/05/17 05:07 79 12 130/88 03/05/17 05:00 71 13 03/05/17 04:07 75 16 132/94 H 03/05/17 04:00 98.1 F 74 13 Intake and Output (Last 8hrs): Intake & Output 03/04/17 03/05/17 03/05/17 22:59 06:59 14:59 Intake Total 240 340 Output Total 350 500 Balance -110 -160 Weight 215 lb Intake: Intake, IV Amount 100 Left Hand 100 Oral 240 240 Output: Urine 350 500 Urine, Voided 350 500 - Physical Exam Physical Exam Limitations: Negative for: Altered Mental Status Head: Positive for: Atraumatic, Normocephalic Pupils: Positive for: PERRL Extroacular Muscles: Positive for: EOMI Mouth: Positive for: Moist Mucous Membranes Respiratory/Chest: Positive for: Clear to Auscultation Cardiovascular: Positive for: Regular Rate and Rhythm, Normal S1, S2 Abdomen: Positive for: Normal Bowel Sounds. Negative for: Tenderness Upper Extremity: Positive for: Normal Inspection Lower Extremity: Positive for: Normal Inspection Skin: Positive for: Warm - Medications Active Medications: Active Medications Generic Name Dose Route Start Last Admin Trade Name Freq PRN Reason Stop Dose Admin Dexamethasone 4 mg 03/04/17 12:30 03/05/17 04:39 Decadron Inj IVP 4 mg Q8H ERICKA Administration Famotidine 20 mg 03/05/17 10:00 Pepcid IVP DAILY ERICKA Heparin Sodium (Porcine) 5,000 units 03/04/17 14:00 03/05/17 06:05 Heparin SC 5,000 units Q8 ERICKA Administration Ceftriaxone Sodium 1 gm/ 100 mls @ 100 mls/hr 03/05/17 10:00 Sodium Chloride IVPB DAILY ERICKA Labetalol HCl 5 mg 03/04/17 12:20 03/04/17 13:06 Trandate IV 5 mg Q6 PRN Administration Systolic Blood Pressure Metoprolol Tartrate 25 mg 03/04/17 18:00 03/04/17 18:11 Lopressor PO 25 mg BID ERICKA Administration Saccharomyces Boulardii 250 mg 03/04/17 18:00 03/04/17 18:13 Florastor PO 250 mg BID ERICKA Administration - Patient Studies Lab Studies: Lab Studies 03/05/17 03/05/17 03/05/17 Range/Units 06:00 06:00 06:00 WBC 17.9 H (4.8-10.8) K/uL RBC 5.30 (4.40-5.90) Mil/uL Hgb 16.0 (12.0-18.0) g/dL Hct 47.3 (35.0-51.0) % MCV 89.2 (80.0-94.0) fL MCH 30.1 (27.0-31.0) pg MCHC 33.8 (33.0-37.0) g/dL RDW 13.4 (11.5-14.5) % Plt Count 337 (130-400) K/uL MPV 8.8 (7.2-11.7) fL Neut % (Auto) 91.4 H (50.0-75.0) % Lymph % (Auto) 6.1 L (20.0-40.0) % [place] % (Auto) 2.4 (0.0-10.0) % Eos % (Auto) 0.0 (0.0-4.0) % Baso % (Auto) 0.1 (0.0-2.0) % Neut # 16.4 H (1.8-7.0) K/uL Lymph # 1.1 (1.0-4.3) K/uL [place] # 0.4 (0.0-0.8) K/uL Eos # 0.0 (0.0-0.7) K/uL Baso # 0.0 (0.0-0.2) K/uL PT (9.7-12.2) SECONDS INR APTT (21-34) SECONDS Sodium 141 (132-148) mmol/L Potassium 5.0 (3.6-5.2) mmol/L Chloride 112 H (98-107) mmol/L Carbon Dioxide 25 (22-30) mmol/L Anion Gap 10 (10-20) BUN 43 H (9-20) mg/dL Creatinine 4.7 H (0.8-1.5) mg/dL Est GFR ( Amer) 16 Est GFR (Non-Af Amer) 13 Random Glucose 124 H (75-110) mg/dL Lactic Acid (0.7-2.1) mmol/L Calcium 8.3 L (8.6-10.4) mg/dl Phosphorus 3.8 (2.5-4.5) mg/dL Magnesium 2.2 (1.6-2.3) mg/dL Total Bilirubin 0.4 (0.2-1.3) mg/dL AST 17 (17-59) U/L ALT 36 (21-72) U/L Alkaline Phosphatase 72 (38-126) U/L Total Protein 7.3 (6.3-8.3) g/dL Albumin 3.4 L (3.5-5.0) g/dL Globulin 4.0 H (2.2-3.9) gm/dL Albumin/Globulin Ratio 0.8 L (1.0-2.1) Procalcitonin (0.19-0.49) NG/ML Hepatitis A IgM Ab Negative (NEGATIVE) Hep Bs Antigen Negative (NEGATIVE) Hep B Core IgM Ab Negative (NEGATIVE) Hepatitis C Antibody Negative (NEGATIVE) Infectious [place] Assay (NEGATIVE) Influenza Typ A,B (EIA) (NEGATIVE) Anti-Staphylolysin O (NEGATIVE) Grp A Beta Strep Ag (NEGATIVE) Blood Type Antibody Screen 03/04/17 03/04/17 03/04/17 Range/Units 21:36 19:01 18:59 WBC (4.8-10.8) K/uL RBC (4.40-5.90) Mil/uL Hgb (12.0-18.0) g/dL Hct (35.0-51.0) % MCV (80.0-94.0) fL MCH (27.0-31.0) pg MCHC (33.0-37.0) g/dL RDW (11.5-14.5) % Plt Count (130-400) K/uL MPV (7.2-11.7) fL Neut % (Auto) (50.0-75.0) % Lymph % (Auto) (20.0-40.0) % [place] % (Auto) (0.0-10.0) % Eos % (Auto) (0.0-4.0) % Baso % (Auto) (0.0-2.0) % Neut # (1.8-7.0) K/uL Lymph # (1.0-4.3) K/uL [place] # (0.0-0.8) K/uL Eos # (0.0-0.7) K/uL Baso # (0.0-0.2) K/uL PT (9.7-12.2) SECONDS INR APTT (21-34) SECONDS Sodium (132-148) mmol/L Potassium (3.6-5.2) mmol/L Chloride (98-107) mmol/L Carbon Dioxide (22-30) mmol/L Anion Gap (10-20) BUN (9-20) mg/dL Creatinine (0.8-1.5) mg/dL Est GFR ( Amer) Est GFR (Non-Af Amer) Random Glucose (75-110) mg/dL Lactic Acid 2.1 2.6 H (0.7-2.1) mmol/L Calcium (8.6-10.4) mg/dl Phosphorus (2.5-4.5) mg/dL Magnesium (1.6-2.3) mg/dL Total Bilirubin (0.2-1.3) mg/dL AST (17-59) U/L ALT (21-72) U/L Alkaline Phosphatase (38-126) U/L Total Protein (6.3-8.3) g/dL Albumin (3.5-5.0) g/dL Globulin (2.2-3.9) gm/dL Albumin/Globulin Ratio (1.0-2.1) Procalcitonin (0.19-0.49) NG/ML Hepatitis A IgM Ab (NEGATIVE) Hep Bs Antigen (NEGATIVE) Hep B Core IgM Ab (NEGATIVE) Hepatitis C Antibody (NEGATIVE) Infectious [place] Assay (NEGATIVE) Influenza Typ A,B (EIA) (NEGATIVE) Anti-Staphylolysin O (NEGATIVE) Grp A Beta Strep Ag Negative (NEGATIVE) Blood Type Antibody Screen 03/04/17 03/04/17 03/04/17 Range/Units 17:27 17:08 15:03 WBC (4.8-10.8) K/uL RBC (4.40-5.90) Mil/uL Hgb (12.0-18.0) g/dL Hct (35.0-51.0) % MCV (80.0-94.0) fL MCH (27.0-31.0) pg MCHC (33.0-37.0) g/dL RDW (11.5-14.5) % Plt Count (130-400) K/uL MPV (7.2-11.7) fL Neut % (Auto) (50.0-75.0) % Lymph % (Auto) (20.0-40.0) % [place] % (Auto) (0.0-10.0) % Eos % (Auto) (0.0-4.0) % Baso % (Auto) (0.0-2.0) % Neut # (1.8-7.0) K/uL Lymph # (1.0-4.3) K/uL [place] # (0.0-0.8) K/uL Eos # (0.0-0.7) K/uL Baso # (0.0-0.2) K/uL PT (9.7-12.2) SECONDS INR APTT (21-34) SECONDS Sodium (132-148) mmol/L Potassium (3.6-5.2) mmol/L Chloride (98-107) mmol/L Carbon Dioxide (22-30) mmol/L Anion Gap (10-20) BUN (9-20) mg/dL Creatinine (0.8-1.5) mg/dL Est GFR ( Amer) Est GFR (Non-Af Amer) Random Glucose (75-110) mg/dL Lactic Acid 1.4 (0.7-2.1) mmol/L Calcium (8.6-10.4) mg/dl Phosphorus (2.5-4.5) mg/dL Magnesium (1.6-2.3) mg/dL Total Bilirubin (0.2-1.3) mg/dL AST (17-59) U/L ALT (21-72) U/L Alkaline Phosphatase (38-126) U/L Total Protein (6.3-8.3) g/dL Albumin (3.5-5.0) g/dL Globulin (2.2-3.9) gm/dL Albumin/Globulin Ratio (1.0-2.1) Procalcitonin (0.19-0.49) NG/ML Hepatitis A IgM Ab (NEGATIVE) Hep Bs Antigen (NEGATIVE) Hep B Core IgM Ab (NEGATIVE) Hepatitis C Antibody (NEGATIVE) Infectious [place] Assay Negative (NEGATIVE) Influenza Typ A,B (EIA) (NEGATIVE) Anti-Staphylolysin O Negative (NEGATIVE) Grp A Beta Strep Ag (NEGATIVE) Blood Type Antibody Screen 03/04/17 03/04/17 03/04/17 Range/Units 15:03 10:45 07:38 WBC (4.8-10.8) K/uL RBC (4.40-5.90) Mil/uL Hgb (12.0-18.0) g/dL Hct (35.0-51.0) % MCV (80.0-94.0) fL MCH (27.0-31.0) pg MCHC (33.0-37.0) g/dL RDW (11.5-14.5) % Plt Count (130-400) K/uL MPV (7.2-11.7) fL Neut % (Auto) (50.0-75.0) % Lymph % (Auto) (20.0-40.0) % [place] % (Auto) (0.0-10.0) % Eos % (Auto) (0.0-4.0) % Baso % (Auto) (0.0-2.0) % Neut # (1.8-7.0) K/uL Lymph # (1.0-4.3) K/uL [place] # (0.0-0.8) K/uL Eos # (0.0-0.7) K/uL Baso # (0.0-0.2) K/uL PT (9.7-12.2) SECONDS INR APTT (21-34) SECONDS Sodium (132-148) mmol/L Potassium (3.6-5.2) mmol/L Chloride (98-107) mmol/L Carbon Dioxide (22-30) mmol/L Anion Gap (10-20) BUN (9-20) mg/dL Creatinine (0.8-1.5) mg/dL Est GFR ( Amer) Est GFR (Non-Af Amer) Random Glucose (75-110) mg/dL Lactic Acid (0.7-2.1) mmol/L Calcium (8.6-10.4) mg/dl Phosphorus (2.5-4.5) mg/dL Magnesium (1.6-2.3) mg/dL Total Bilirubin (0.2-1.3) mg/dL AST (17-59) U/L ALT (21-72) U/L Alkaline Phosphatase (38-126) U/L Total Protein (6.3-8.3) g/dL Albumin (3.5-5.0) g/dL Globulin (2.2-3.9) gm/dL Albumin/Globulin Ratio (1.0-2.1) Procalcitonin 0.73 H (0.19-0.49) NG/ML Hepatitis A IgM Ab (NEGATIVE) Hep Bs Antigen (NEGATIVE) Hep B Core IgM Ab (NEGATIVE) Hepatitis C Antibody (NEGATIVE) Infectious [place] Assay (NEGATIVE) Influenza Typ A,B (EIA) Negative for flu a/b (NEGATIVE) Anti-Staphylolysin O (NEGATIVE) Grp A Beta Strep Ag (NEGATIVE) Blood Type AB POSITIVE Antibody Screen Negative 03/04/17 03/04/17 03/04/17 Range/Units 07:34 07:34 07:34 WBC 12.8 H (4.8-10.8) K/uL RBC 5.97 H (4.40-5.90) Mil/uL Hgb 17.5 (12.0-18.0) g/dL Hct 52.3 H (35.0-51.0) % MCV 87.6 (80.0-94.0) fL MCH 29.4 (27.0-31.0) pg MCHC 33.5 (33.0-37.0) g/dL RDW 13.4 (11.5-14.5) % Plt Count 349 (130-400) K/uL MPV 8.7 (7.2-11.7) fL Neut % (Auto) 67.8 (50.0-75.0) % Lymph % (Auto) 22.2 (20.0-40.0) % [place] % (Auto) 5.6 (0.0-10.0) % Eos % (Auto) 3.5 (0.0-4.0) % Baso % (Auto) 0.9 (0.0-2.0) % Neut # 8.7 H (1.8-7.0) K/uL Lymph # 2.8 (1.0-4.3) K/uL [place] # 0.7 (0.0-0.8) K/uL Eos # 0.5 (0.0-0.7) K/uL Baso # 0.1 (0.0-0.2) K/uL PT 10.7 (9.7-12.2) SECONDS INR 1.0 APTT 32 (21-34) SECONDS Sodium 139 (132-148) mmol/L Potassium 3.8 (3.6-5.2) mmol/L Chloride 107 (98-107) mmol/L Carbon Dioxide 23 (22-30) mmol/L Anion Gap 13 (10-20) BUN 36 H (9-20) mg/dL Creatinine 4.3 H (0.8-1.5) mg/dL Est GFR ( Amer) 18 Est GFR (Non-Af Amer) 15 Random Glucose 109 (75-110) mg/dL Lactic Acid (0.7-2.1) mmol/L Calcium 8.5 L (8.6-10.4) mg/dl Phosphorus (2.5-4.5) mg/dL Magnesium (1.6-2.3) mg/dL Total Bilirubin 0.7 (0.2-1.3) mg/dL AST 21 (17-59) U/L ALT 27 (21-72) U/L Alkaline Phosphatase 85 (38-126) U/L Total Protein 6.6 (6.3-8.3) g/dL Albumin 3.6 (3.5-5.0) g/dL Globulin 3.0 (2.2-3.9) gm/dL Albumin/Globulin Ratio 1.2 (1.0-2.1) Procalcitonin (0.19-0.49) NG/ML Hepatitis A IgM Ab (NEGATIVE) Hep Bs Antigen (NEGATIVE) Hep B Core IgM Ab (NEGATIVE) Hepatitis C Antibody (NEGATIVE) Infectious [place] Assay (NEGATIVE) Influenza Typ A,B (EIA) (NEGATIVE) Anti-Staphylolysin O (NEGATIVE) Grp A Beta Strep Ag (NEGATIVE) Blood Type Antibody Screen Laboratory Results - last 24 hr 03/04/17 03/04/17 03/04/17 07:34 07:34 07:34 WBC 12.8 H RBC 5.97 H Hgb 17.5 Hct 52.3 H MCV 87.6 MCH 29.4 MCHC 33.5 RDW 13.4 Plt Count 349 MPV 8.7 Neut % (Auto) 67.8 Lymph % (Auto) 22.2 [place] % (Auto) 5.6 Eos % (Auto) 3.5 Baso % (Auto) 0.9 Neut # 8.7 H Lymph # 2.8 [place] # 0.7 Eos # 0.5 Baso # 0.1 PT 10.7 INR 1.0 APTT 32 Sodium 139 Potassium 3.8 Chloride 107 Carbon Dioxide 23 Anion Gap 13 BUN 36 H Creatinine 4.3 H Est GFR ( Amer) 18 Est GFR (Non-Af Amer) 15 Random Glucose 109 Lactic Acid Calcium 8.5 L Phosphorus Magnesium Total Bilirubin 0.7 AST 21 ALT 27 Alkaline Phosphatase 85 Total Protein 6.6 Albumin 3.6 Globulin 3.0 Albumin/Globulin Ratio 1.2 Procalcitonin Hepatitis A IgM Ab Hep Bs Antigen Hep B Core IgM Ab Hepatitis C Antibody Infectious [place] Assay Influenza Typ A,B (EIA) Anti-Staphylolysin O Grp A Beta Strep Ag Blood Type Antibody Screen 03/04/17 03/04/17 03/04/17 07:38 10:45 15:03 WBC RBC Hgb Hct MCV MCH MCHC RDW Plt Count MPV Neut % (Auto) Lymph % (Auto) [place] % (Auto) Eos % (Auto) Baso % (Auto) Neut # Lymph # [place] # Eos # Baso # PT INR APTT Sodium Potassium Chloride Carbon Dioxide Anion Gap BUN Creatinine Est GFR ( Amer) Est GFR (Non-Af Amer) Random Glucose Lactic Acid Calcium Phosphorus Magnesium Total Bilirubin AST ALT Alkaline Phosphatase Total Protein Albumin Globulin Albumin/Globulin Ratio Procalcitonin 0.73 H Hepatitis A IgM Ab Hep Bs Antigen Hep B Core IgM Ab Hepatitis C Antibody Infectious [place] Assay Influenza Typ A,B (EIA) Negative for flu a/b Anti-Staphylolysin O Grp A Beta Strep Ag Blood Type AB POSITIVE Antibody Screen Negative 03/04/17 03/04/17 03/04/17 15:03 17:08 17:27 WBC RBC Hgb Hct MCV MCH MCHC RDW Plt Count MPV Neut % (Auto) Lymph % (Auto) [place] % (Auto) Eos % (Auto) Baso % (Auto) Neut # Lymph # [place] # Eos # Baso # PT INR APTT Sodium Potassium Chloride Carbon Dioxide Anion Gap BUN Creatinine Est GFR ( Amer) Est GFR (Non-Af Amer) Random Glucose Lactic Acid 1.4 Calcium Phosphorus Magnesium Total Bilirubin AST ALT Alkaline Phosphatase Total Protein Albumin Globulin Albumin/Globulin Ratio Procalcitonin Hepatitis A IgM Ab Hep Bs Antigen Hep B Core IgM Ab Hepatitis C Antibody Infectious [place] Assay Negative Influenza Typ A,B (EIA) Anti-Staphylolysin O Negative Grp A Beta Strep Ag Blood Type Antibody Screen 03/04/17 03/04/17 03/04/17 18:59 19:01 21:36 WBC RBC Hgb Hct MCV MCH MCHC RDW Plt Count MPV Neut % (Auto) Lymph % (Auto) [place] % (Auto) Eos % (Auto) Baso % (Auto) Neut # Lymph # [place] # Eos # Baso # PT INR APTT Sodium Potassium Chloride Carbon Dioxide Anion Gap BUN Creatinine Est GFR ( Amer) Est GFR (Non-Af Amer) Random Glucose Lactic Acid 2.6 H 2.1 Calcium Phosphorus Magnesium Total Bilirubin AST ALT Alkaline Phosphatase Total Protein Albumin Globulin Albumin/Globulin Ratio Procalcitonin Hepatitis A IgM Ab Hep Bs Antigen Hep B Core IgM Ab Hepatitis C Antibody Infectious [place] Assay Influenza Typ A,B (EIA) Anti-Staphylolysin O Grp A Beta Strep Ag Negative Blood Type Antibody Screen 03/05/17 03/05/17 03/05/17 06:00 06:00 06:00 WBC 17.9 H RBC 5.30 Hgb 16.0 Hct 47.3 MCV 89.2 MCH 30.1 MCHC 33.8 RDW 13.4 Plt Count 337 MPV 8.8 Neut % (Auto) 91.4 H Lymph % (Auto) 6.1 L [place] % (Auto) 2.4 Eos % (Auto) 0.0 Baso % (Auto) 0.1 Neut # 16.4 H Lymph # 1.1 [place] # 0.4 Eos # 0.0 Baso # 0.0 PT INR APTT Sodium 141 Potassium 5.0 Chloride 112 H Carbon Dioxide 25 Anion Gap 10 BUN 43 H Creatinine 4.7 H Est GFR ( Amer) 16 Est GFR (Non-Af Amer) 13 Random Glucose 124 H Lactic Acid Calcium 8.3 L Phosphorus 3.8 Magnesium 2.2 Total Bilirubin 0.4 AST 17 ALT 36 Alkaline Phosphatase 72 Total Protein 7.3 Albumin 3.4 L Globulin 4.0 H Albumin/Globulin Ratio 0.8 L Procalcitonin Hepatitis A IgM Ab Negative Hep Bs Antigen Negative Hep B Core IgM Ab Negative Hepatitis C Antibody Negative Infectious [place] Assay Influenza Typ A,B (EIA) Anti-Staphylolysin O Grp A Beta Strep Ag Blood Type Antibody Screen EKG/Cardiology Studies: Cardiology / EKG Studies 03/04/17 17:30 EKG [ELECTROCARDIOGRAM] Stat Comment: Mode Of Transportation: PORTABLE Reason For Exam: baseline Critical Care Progress Note - Nutrition Nutrition: Nutrition Category Date Time Status Heart Healthy Diet [DIET] Diets 03/04/17 Dinner Active Assessment/Plan - Assessment and Plan (Free Text) Plan: Epiglottis: continue empirical ceftriaxone, f/u cultures -ASHA: obtain nephrology consult as fluids did not improve creatinine, patient refused polanco placement. -Patient advised that he may require HD if his kidney function does not improve -continue DVT/PUD ppx Patient remains hemodynamically stable. -Patient strongly advised to STOP "exforge" Patient remains hemodynamically stable with improvement of pharyngeal swelling. - Date & Time Date: 03/05/17 Time: 07:21
[2017-03-05 08:44] LABS: NEUTROPHIL 88 % (50-75); REACTIVE LYMPHOCYTES 1 % (0-0); TOTAL CELLS COUNTED 100
[2017-03-05] MEDS: Saccharomyces Boulardi 250 mg Cap PO SCH ×2 (09:47→17:17)
[2017-03-05 09:53] VITALS: O2SAT 94
[2017-03-05] MEDS ORDERED: Pantoprazole 40 mg EC Tab PO SCH (10:00)
[2017-03-05] MEDS ORDERED: Enoxaparin 40 mg Syringe SC SCH (10:00)
--- NOTE | 2017-03-05 10:21 | US ---
Renal ultrasound History: Renal failure. Comparison: None available. Technique: Real-time sonography was performed through the kidneys. Findings: Please note this was a limited study performed in the ICU portably. Right kidney: 10.7 x 5.7 x 5.3 centimeters. Increased echogenicity of the renal parenchymal cortex suggestive for medical renal disease. Midpole hypoechoic cyst measuring 2.0 x 2.3 x 1.7 centimeters. Mild fullness of the right renal collecting system. Left kidney: 9.9 x 5.1 x 4.5 centimeters. Increased echogenicity of the renal parenchymal cortex suggestive for medical renal disease. Upper pole hypoechoic cyst measuring 1.4 x 1.0 x 1.2 centimeters. Mild fullness of the left renal collecting system. Mid and distal abdominal aorta was not well visualized. Proximal aorta is grossly preserved. Urinary bladder is mildly distended. Impression: Increased echogenicity of the bilateral renal parenchymal cortices suggestive for medical renal disease. Bilateral renal cysts as described above. Mild fullness of the bilateral renal collecting systems. Additional findings as above.
[2017-03-05] MEDS ORDERED: Vancomycin 1 gm/NS 200 ml 1 GM/200 ML BAG IVPB SCH (14:00)
--- NOTE | 2017-03-05 14:18 | CP.PCM.DIS ---
Provider - Provider Date of Admission: 03/04/17 09:37 Attending physician: Melvin Lazo MD Primary care physician: Dr. Preciado Consults: ID Dr. Greg Nova ENT Dr. Natividad Garcia Time Spent in preparation of Discharge (in minutes): 40 Diagnosis - Discharge Diagnosis (1) Acute epiglottitis Status: Acute (2) HTN (hypertension) Status: Chronic (3) Acute renal failure Status: Acute (4) Prophylactic measure Status: Acute Hospital Course - Lab Results Lab Results: Most Recent Lab Values WBC 17.9 K/uL (4.8-10.8) H 03/05/17 06:00 RBC 5.30 Mil/uL (4.40-5.90) 03/05/17 06:00 Hgb 16.0 g/dL (12.0-18.0) 03/05/17 06:00 Hct 47.3 % (35.0-51.0) 03/05/17 06:00 MCV 89.2 fL (80.0-94.0) 03/05/17 06:00 MCH 30.1 pg (27.0-31.0) 03/05/17 06:00 MCHC 33.8 g/dL (33.0-37.0) 03/05/17 06:00 RDW 13.4 % (11.5-14.5) 03/05/17 06:00 Plt Count 337 K/uL (130-400) 03/05/17 06:00 MPV 8.8 fL (7.2-11.7) 03/05/17 06:00 Neut % (Auto) 91.4 % (50.0-75.0) H 03/05/17 06:00 Lymph % (Auto) 6.1 % (20.0-40.0) L 03/05/17 06:00 Kerr % (Auto) 2.4 % (0.0-10.0) 03/05/17 06:00 Eos % (Auto) 0.0 % (0.0-4.0) 03/05/17 06:00 Baso % (Auto) 0.1 % (0.0-2.0) 03/05/17 06:00 Neut # 16.4 K/uL (1.8-7.0) H 03/05/17 06:00 Lymph # 1.1 K/uL (1.0-4.3) 03/05/17 06:00 Kerr # 0.4 K/uL (0.0-0.8) 03/05/17 06:00 Eos # 0.0 K/uL (0.0-0.7) 03/05/17 06:00 Baso # 0.0 K/uL (0.0-0.2) 03/05/17 06:00 Neutrophils % (Manual) 88 % (50-75) H 03/05/17 06:00 Band Neutrophils % 5 % (0-2) H 03/05/17 06:00 Lymphocytes % (Manual) 3 % (20-40) L 03/05/17 06:00 Reactive Lymphs % 1 % (0-0) H 03/05/17 06:00 Monocytes % (Manual) 3 % (0-10) 03/05/17 06:00 Platelet Estimate Normal (NORMAL) 03/05/17 06:00 RBC Morphology Normal 03/05/17 06:00 PT 10.7 SECONDS (9.7-12.2) 03/04/17 07:34 INR 1.0 03/04/17 07:34 APTT 32 SECONDS (21-34) 03/04/17 07:34 Sodium 141 mmol/L (132-148) 03/05/17 06:00 Potassium 5.0 mmol/L (3.6-5.2) 03/05/17 06:00 Chloride 112 mmol/L (98-107) H 03/05/17 06:00 Carbon Dioxide 25 mmol/L (22-30) 03/05/17 06:00 Anion Gap 10 (10-20) 03/05/17 06:00 BUN 43 mg/dL (9-20) H 03/05/17 06:00 Creatinine 4.7 mg/dL (0.8-1.5) H 03/05/17 06:00 Est GFR ( Amer) 16 03/05/17 06:00 Est GFR (Non-Af Amer) 13 03/05/17 06:00 Random Glucose 124 mg/dL (75-110) H 03/05/17 06:00 Lactic Acid 2.1 mmol/L (0.7-2.1) 03/04/17 21:36 Calcium 8.3 mg/dl (8.6-10.4) L 03/05/17 06:00 Phosphorus 3.8 mg/dL (2.5-4.5) 03/05/17 06:00 Magnesium 2.2 mg/dL (1.6-2.3) 03/05/17 06:00 Total Bilirubin 0.4 mg/dL (0.2-1.3) 03/05/17 06:00 AST 17 U/L (17-59) 03/05/17 06:00 ALT 36 U/L (21-72) 03/05/17 06:00 Alkaline Phosphatase 72 U/L (38-126) 03/05/17 06:00 Total Protein 7.3 g/dL (6.3-8.3) 03/05/17 06:00 Albumin 3.4 g/dL (3.5-5.0) L 03/05/17 06:00 Globulin 4.0 gm/dL (2.2-3.9) H 03/05/17 06:00 Albumin/Globulin Ratio 0.8 (1.0-2.1) L 03/05/17 06:00 Procalcitonin 0.73 NG/ML (0.19-0.49) H 03/04/17 15:03 Hepatitis A IgM Ab Negative (NEGATIVE) 03/05/17 06:00 Hep Bs Antigen Negative (NEGATIVE) 03/05/17 06:00 Hep B Core IgM Ab Negative (NEGATIVE) 03/05/17 06:00 Hepatitis C Antibody Negative (NEGATIVE) 03/05/17 06:00 HIV 1&2 Antibody Screen Negative (NEGATIVE) 03/05/17 06:00 Infectious Kerr Assay Negative (NEGATIVE) 03/04/17 17:27 Influenza Typ A,B (EIA) Negative for flu a/b (NEGATIVE) 03/04/17 10:45 Anti-Staphylolysin O Negative (NEGATIVE) 03/04/17 17:08 Grp A Beta Strep Ag Negative (NEGATIVE) 03/04/17 19:01 Blood Type AB POSITIVE 03/04/17 07:38 Antibody Screen Negative 03/04/17 07:38 - Hospital Course Hospital Course: 46 year old male who presented 03/04/17 via EMS with a chief complaint of choking sensation. Patient stated that he went to sleep at midnight 03/03/17. He then woke up abruptly at 3 AM 03/04/17 coughing and wheezing and a choking sensation in the back of his throat. He tried to drink some water but this made these things worse. He became concerned as this has never happened before and therefore called 911 and was brought to the ER here at [facility]. He has not recently traveled anywhere. 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 CT Neck Soft Tissue and X Ray Neck showed evidence of Epiglottitis. He was transferred to ICU. He was started on Ceftriaxone and Vancomycin and Decadron. He improved and on 03/05/17 he was able to speak more clearly, hoarseness of voice improved, eating/swallowing without difficulty. He was evaluated by ENT 03/05/17 and cleared for discharge. He was noted to have Grade 4 Renal Failure. Patient explained that his PMD Dr. Gomez had directed him to be evaluated by a [employer] roughly 1 month ago but he never followed up secondary to being busy with his [employer] He stated that he will re-contact [facility] on Tuesday03/07/17 for an appointment as soon as possible. He will also follow up with Dr. Gomez in the next 7 days. ROS: NO chest pain NO SOB/Wheezing/Cough NO dysphagia/odynophagia NO abdominal pain NO n/v/d/c NO burning/pain with urination NO paresthesias NO edema NO new change in vision NO new change in hearing Exam: Physical Exam - Constitutional Appears: Well, Non-toxic, No Acute Distress - Head Exam Head Exam: ATRAUMATIC, NORMAL INSPECTION - Eye Exam Eye Exam: EOMI, Normal appearance, PERRL Pupil Exam: NORMAL ACCOMODATION, PERRL - ENT Exam ENT Exam: Mucous Membranes Dry, Normal Exam, Normal External Ear Exam, Normal Oropharynx - Neck Exam Neck exam: Positive for: Normal Inspection Additional comments: Thick neck but NO lymphadenopathy palpated - Respiratory Exam Respiratory Exam: Clear to Auscultation Bilateral Additional comments: CTA B/L, NO R/R/W - Cardiovascular Exam Cardiovascular Exam: REGULAR RHYTHM, +S1, +S2 Additional comments: NS1 and NS2, NO M/R/G - GI/Abdominal Exam GI & Abdominal Exam: Normal Bowel Sounds, Soft Additional comments: BSx4, Soft, NT, Central Obesity, Liver and Spleen could not be adequately palpated secondary to body habitus, NO guarding/rebound tenderness - Extremities Exam Extremities exam: Positive for: normal capillary refill, normal inspection Additional comments: Pulses are strong and qual, Capillary Refill is 2 seconds, NO edema - Neurological Exam Neurological exam: Alert, CN II-XII Intact, Oriented x3 - Psychiatric Exam Psychiatric exam: Normal Affect, Normal Mood - Skin Skin Exam: Dry, Intact, Normal Color The following instructions were explained to patient and a copy will be provided to him upon discharge: 1). Please follow up with your Primary Care Physician Dr. Preciado in the next 7 days. Bring this document along with copies of the reports of your Kidney U/S, CT Scan Neck, X Ray Neck, and Chest X Ray with you when you follow up with her for her review. 2). Please picking tech the following prescriptions that were electronically sent to your [facility] located at [address] [place] [address] in [place] and take as directed: Metoprolol 25 mg, 1 tablet by mouth 2x/day (breakfast and dinner), Disp #60, NO refills Augmentin 875/125 mg, 1 tablet by mouth 2x/day (breakfast and dinner), Disp #18 , NO refills Prednisone 10 mg, 5 tablets by mouth 1x/day on 03/06/17, 4 tablets by mouth 1x/ day on 03/07/17, 3 tablets by mouth 1x/day on 03/08/17, 2 tablets by mouth 1x/ day on 03/09/17, and 1 tablet by mouth 1x/day on 03/10/17, Disp #15, NO refills 3). You have Grade 4 out of 5 kidney failure. Please make sure to schedule follow up with Kidney specialist recommended by Dr. Preciado as soon as possible. 4). STOP taking Exforge. 5). Through Dr. Preciado's office obtain referral for allergy testing. 6). When you go to [facility] later today to picking tech your prescriptions, ask the pharmacist which PROBIOTIC that she/he recommends and take every day for the next 39 days at lunch time. This will help to prevent infectious diarrhea from the antibiotic. 7). Failure to follow the above instructions will have serious consequences to your health. 8). Your Pizzeria will always be there, but your health will not be, so do NOT take your health for granted and take care of it. 9). Please take care and be well. Melvin Lazo D.O. Discharge Exam - Head Exam Head Exam: ATRAUMATIC, NORMAL INSPECTION Discharge Plan - Discharge Medications Prescriptions: Amoxicillin/Clavulanate [Augmentin 875 MG-125 MG] 1 tab PO BID #18 tab Metoprolol Tartrate [Lopressor] 25 mg PO BID #60 tab Prednisone 10 mg PO DAILY #15 tab.ds.pk - Follow Up Plan Condition: SERIOUS Disposition: HOME/ ROUTINE Instructions: Acute Epiglottitis (DC), Acute Epiglottitis (GEN), Acute Kidney Injury (DC), Acute Epiglottitis in Children (DC), Hypertension (DC), Hypertension (GEN) Additional Instructions: The following instructions were explained to patient and a copy will be provided to him upon discharge: 1). Please follow up with your Primary Care Physician Dr. Preciado in the next 7 days. Bring this document with you when you follow up with her. 2). Please picking tech the following prescriptions at your [facility] located at [address] [place] [address] and take as directed: Metoprolol 25 mg, 1 tablet by mouth 2x/day (breakfast and dinner), Disp #60, NO refills Augmentin 875/125 mg, 1 tablet by mouth 2x/day (breakfast and dinner), Disp #18 , NO refills Prednisone 10 mg, 5 tablets by mouth 1x/day on 03/06/17, 4 tablets by mouth 1x/ day on 03/07/17, 3 tablets by mouth 1x/day on 03/08/17, 2 tablets by mouth 1x/ day on 03/09/17, and 1 tablet by mouth 1x/day on 03/10/17, Disp #15, NO refills 3). You have Grade 4 out of 5 kidney failure. Please make sure to schedule follow up with Kidney specialist recommended by Dr. Preciado as soon as possible. 4). STOP taking Exforge. 5). Through Dr. Preciado's office obtain referral for allergy testing. 6). When you go to [facility] later today to picking tech your prescriptions, ask the pharmacist which PROBIOTIC that she/he recommends and take every day for the next 39 days at lunch time. This will help to prevent infectious diarrhea from the antibiotic. 7). Failure to follow the above instructions will have serious consequences to your health. 8). Your Pizzeria will always be there, but your health will not be, so do NOT take your health for granted and take care of it. 9). Please take care and be well.
[2017-03-05 14:20] LABS: CALCIUM 8.8 mg/dl (8.6-10.4); POTASSIUM 4.4 mmol/L (3.6-5.2)
[2017-03-05 17:18] VITALS: BP 139/96; PULSE 74; RESP 19
--- NOTE | 2017-03-05 17:33 | OP ---
PROCEDURE DATE: 03/05/2017 PREOPERATIVE DIAGNOSES: Airway obstruction and epiglottitis. POSTOPERATIVE DIAGNOSIS: Airway obstruction and epiglottitis. PROCEDURE: Flexible laryngoscopy. SIGNIFICANT FINDINGS: No masses. No lesions. Mild erythema. No edema. DESCRIPTION OF PROCEDURE: The patient was placed in a seated position. The nose was decongested using Afrin. Flexible laryngoscope was inserted into the nasal cavity, passed through the nasopharynx, oropharynx and hypopharynx. The pharyngeal sanchez, base of tongue, vallecula, epiglottis, AE folds, false cords, true cords, and arytenoid were brought into view. Mild erythema was noted in the mucosa. There was no edema, no masses, no lesions. Vocal cords were immobile bilaterally. Epiglottis has been resolved. The patient had some infection left. He is okay to be discharged home on antibiotics and Medrol Dosepak. Sebastian Garcia MD
[2017-03-05 17:36] VITALS: TEMP 97.7
[2017-03-06 07:31] LABS: EPSTEIN-BARR VCA AB IGG >750.00 U/mL; EPSTEIN-BARR VCA AB IGM <36.00 U/mL
--- NOTE | 2017-03-07 22:20 | CARD ---
APPROVED REPORT EKG Measurement Heart [id number] <Conclusion> Normal sinus rhythm Normal ECG
== END 2017-03-05 17:25 | disposition home or self-care (01) | DRG 586 ==
LOC: C.ER 07:06 → C.9I 09:37
PROVIDERS: ADMIT Family Medicine; ATTEND Family Medicine
PROC: 0CJS8ZZ Inspection of Larynx, Via Natural or Artificial Opening Endoscopic (ICD-10-PCS; principal; 2017-03-04)
DX: J05.11 Acute epiglottitis with obstruction (principal); N17.9 Acute kidney failure, unspecified; N18.4 Chronic kidney disease, stage 4 (severe); I12.9 Hypertensive chronic kidney disease with stage 1 through stage 4 chronic kidney disease, or unspecified chronic kidney disease; J34.2 Deviated nasal septum; R13.10 Dysphagia, unspecified; Z87.891 Personal history of nicotine dependence